=== PATIENT | female | born 1940 | race Caucasian/White ===

== ENCOUNTER 2019-12-23 09:25 | Outpatient (CLI) | payer MEDICARE, SELFPAY ==
--- NOTE | ~2019-12-23 | CT_ITS ---
EXAMINATION: CT abdomen pelvis wo con DATE: 12/23/2019 10:10 INDICATION: Periumbilical mass TECHNIQUE: Computed tomography (CT) of the abdomen and pelvis was performed without intravenous contr ast. Automated exposure control and iterative reconstruction technique were employed. Exam dose: 184 .92 mGy-cm total exam DLP. COMPARISON: 06/26/2016 CT abdomen pelvis FINDINGS: Interval placement of an [id number] stent since 06/26/2016. The [place] abdominal aorta m easures up to 4.2 cm at the diaphragmatic hiatus and up to 5.5 cm in the infrarenal area (compared to 3.7 cm and 4.5 cm, respectively on 06/26/2016. No abnormal periaortic fluid or fibrosis is suggested. No intraperitoneal or retroperitoneal or pelvic mass lesion or adenopathy or ascites. Status post sternotomy. Normal heart size. No pericardial or pleural effusion. Emphysematous changes are noted in the included lower lung zones. No infiltrate or consolidation or m ass lesion is identified in the lower lung zones. Status post cholecystectomy. No hepatic, splenic, pancreatic, and adrenal space-occupying mass lesion . There is a calcified hepatic and multiple calcified splenic granulomas. Stable prominent extrahepat ic bile ducts compared to 06/26/2016, likely secondary to cholecystectomy. No pancreatic duct dilatati on. Approximately 4.5 mm posterior lower pole right renal calcification. There is a pinpoint calculus in the upper pole of the left kidney and a pinpoint calculus in the mid left kidney. No ureteral calculus or hydroureteronephrosis. At least 2 lower pole small renal probable left renal cysts are noted. There is suggestion of a new o r enlarged approximately 1.5 cm low-attenuation lesion in the lower pole of the left kidney since 06/17. Consider further evaluation with renal ultrasound or contrast-enhanced CT examination. The urinary bladder is unremarkable. Status post hysterectomy. Diverticulosis of the sigmoid colon; no evidence of diverticulitis. No bowel obstruction or intraperi toneal free air. Mild apparently old chronic compression fracture deformity of L4. Severe degenerative disc disease at L3-4 and L4-5. Osteopenia. IMPRESSION: Endovascular stent of the abdominal aorta and iliac arteries; [place] abdominal aorta bertin sures up to 4.2 cm at the diaphragmatic hiatus and up to 5.5 cm in the infrarenal area (compared to 3 .7 and 4.5 cm, respectively, on 06/26/2016) Status post sternotomy, cholecystectomy, hysterectomy Bilateral nonobstructing nephrolithiasis Left renal cysts Diverticulosis of the sigmoid colon Reviewed, dictated and finalized at [facility]. Reviewed, dictated and finalized at location [facility]. BAGGER IMPRESSION: Endovascular stent of the abdominal aorta and iliac arteries; jeffrey ve abdominal aorta measures up to 4.2 cm at the diaphragmatic hiatus and up to 5.5 cm in the infrarenal area (compared to 3.7 and 4.5 cm, respectively, on 06/17) Status post sternotomy, cholecystectomy, hysterectomy Bilateral nonobstructing nephrolithiasis Left renal cysts Diverticulosis of the sigmoid colon
[2019-12-23 09:58] LABS: Blood Urea Nitrogen 18 mg/dL (8-26); Estimated Glomerular Filt Rate 25
== END 2019-12-23 09:26 | disposition home or self-care (01) ==
PROVIDERS: Visit Provider Internal Medicine Hematology & Oncology
DX: N20.0 Calculus of kidney (principal); N28.1 Cyst of kidney, acquired; K57.30 Diverticulosis of large intestine without perforation or abscess without bleeding
CPT/HCPCS: 74176

== ENCOUNTER 2019-12-31 15:44 | Emergency (ER) | payer MEDICARE, SELFPAY ==
--- NOTE | ~2019-12-31 | XR_ITS ---
EXAMINATION: XR ribs RT 2V w CXR 2V INDICATION: Right rib pain after fall TECHNIQUE: PA and lateral views of the chest and 3 views of the right ribs were obtained. COMPARISON: 03/25/18 FINDINGS: The bones are osteopenic which limits sensitivity for fracture. However, there appear to be minimally displaced fractures of the right fourth, fifth, and sixth ribs posterolaterally. Thickenin g of the adjacent pleural likely represents surrounding chest wall hematoma. The lungs are free of ac red devil opacities. There is no pleural effusion or pneumothorax. Surgical clips project over the right benny ng apex as well as the right breast. There is a partially imaged abdominal endoluminal stent graft. C holecystectomy clips are noted in the right upper quadrant. Median sternotomy wires and mediastinal s urgical clips are seen, likely from prior coronary artery bypass grafting. The heart size is normal. IMPRESSION: 1. Minimally displaced fractures of the right fourth, fifth, and sixth ribs posterolaterally. Reviewed, dictated and finalized at location A. OR PACKAGING ENGINEER IMPRESSION: 1. Minimally displaced fractures of the right fourth, fifth, and sixth ribs pos terolaterally.
[2019-12-31 16:10] VITALS: BP 150/96; PULSE 92; RESP 16; TEMP 36.7; O2SAT 100
--- NOTE | 2019-12-31 16:26 | ED.FALL ---
HPI - Fall General Chief Complaint: Fall Stated Complaint: R rib pain after fall Time Seen by Provider: 12/31/19 16:26 Source: patient Mode of arrival: ambulatory Limitations: no limitations History of Present Illness HPI Narrative: An 79 y/o female presents to the ED after a fall at 3:30 PM. Pt states that she slipped on a patch of ice and fell on her side. Pt c/o right rib pain. Pt has a prescription for Hydrocodone for chronic back pain and took this after her fall today with no relief. She reports SOB only because pain is worse when she breaths, but denies a HI, LOC, lightheadedness, dizziness, right arm pain, right hip pain, and right leg pain. Pt is on ASA 81 mg. Onset (ago): hour(s) (3:30 PM) Loss of consciousness: none Context: tripped/slipped Related Data Home Medications Medication Instructions Recorded Confirmed anastrozole 1 mg PO DAILY 09/03/19 12/29/19 ascorbic acid (vitamin C) 500 mg PO TID 09/03/19 12/29/19 aspirin 81 mg PO DAILY 09/03/19 12/29/19 calcium carbonate 500 mg PO DAILY 09/03/19 12/29/19 cholecalciferol (vitamin D3) 400 unit PO DAILY 09/03/19 12/29/19 clopidogrel 75 mg PO DAILY 09/03/19 12/29/19 diltiazem HCl 240 mg PO DAILY 09/03/19 12/29/19 fenofibrate 54 mg PO DAILY 09/03/19 12/29/19 ferrous sulfate 325 mg PO TID 09/03/19 12/29/19 hydrocodone-acetaminophen 1 tablet PO Q8H PRN 09/03/19 12/29/19 isosorbide mononitrate 60 mg PO DAILY 09/03/19 12/29/19 levothyroxine 100 mcg PO DAILY 09/03/19 12/29/19 mirtazapine 15 mg PO HS 09/03/19 12/29/19 pantoprazole 40 mg PO BID 09/03/19 12/29/19 pravastatin 40 mg PO DAILY 09/03/19 12/29/19 Allergies Allergy/AdvReac Type Severity Reaction Status Date / Time Penicillins Allergy Intermediate RASH Verified 07/27/18 09:35 Review of Systems Review of Systems: All systems reviewed & are unremarkable except as noted in HPI and below Constitutional: Comments: Reports: a fall; Denies: lightheadedness Respiratory: Respiratory: Reports dyspnea Musculoskeletal: Comments: Reports: right rib pain; Denies: right arm pain, right hip pain, right leg pain Neurologic: Denies dizziness Comments: Denies: HI, LOC PMFSH Past Medical History Medical History Anemia Arthritis Breast cancer, right Full dentures GERD (gastroesophageal reflux disease) Heart attack History of angina History of blood transfusion HLD (hyperlipidemia) HTN (hypertension) Hypothyroid Nose fracture Pneumonia Wears glasses Surgical History Surgical History H/O angioplasty H/O bilateral cataract extraction H/O cardiac catheterization H/O colonoscopy H/O heart artery stent History of appendectomy History of cholecystectomy History of hysterectomy Hx of CABG x3 Social History Social History (Updated 12/31/19 @ 16:40 by Katty Bennett) Smoking status: Former smoker Smoking end date: 11/17/02 Comments PCP: Dr. Pringle Exam Narrative: Exam Narrative: GENERAL: Well-appearing, well-nourished, mild distress due to pain HEAD: Normocephalic, atraumatic EYES: PERRLA and EOMI, conjunctiva clear without discharge EARS: TM's clear bilaterally without erythema or dullness THROAT:Mucous membranes moist, Oropharynx normal without erythema, exudate, peritonsillar swelling or fluctuance NECK: Supple, without lymphadenopathy or mass RESPIRATORY: No respiratory distress, Airway patent, Respirations non-labored, Clear to auscultation without rales, rhonchi or wheeze, right posterior lateral rib tenderness, no bruising or swelling HEART: Regular rate and rhythm. No murmur heard. Normal peripheral pulses. ABDOMEN: Soft, nontender, nondistended, normal active bowel sounds. No masses. No rebound or guarding, No organomegaly. EXTREMITIES: No edema, normal strength with full range of motion. SKIN: Warm, dry, normal color without rash NEURO: Alert and oriented x3. CN 2-12 grossly intact. No foc
[2019-12-31] MEDS: ONDANSETRON HCL ODT 4 MG TABLET PO (18:07)
[2019-12-31] MEDS: HYDROMORPHONE HCL 1 MG/ML INJ 0.5 MG IM (18:07)
[2019-12-31 18:56] VITALS: RESP 16
== END 2019-12-31 18:57 | disposition home or self-care (01) ==
PROVIDERS: Emergency Provider General Practice
DX: S22.41XA Multiple fractures of ribs, right side, initial encounter for closed fracture (principal); D64.9 Anemia, unspecified; M19.90 Unspecified osteoarthritis, unspecified site; Z85.3 Personal history of malignant neoplasm of breast; K21.9 Gastro-esophageal reflux disease without esophagitis; I25.2 Old myocardial infarction; E78.5 Hyperlipidemia, unspecified; I10 Essential (primary) hypertension; E03.9 Hypothyroidism, unspecified; Z98.42 Cataract extraction status, left eye; Z98.41 Cataract extraction status, right eye; Z95.5 Presence of coronary angioplasty implant and graft; Z95.1 Presence of aortocoronary bypass graft; I25.10 Atherosclerotic heart disease of native coronary artery without angina pectoris; Z87.891 Personal history of nicotine dependence; W00.0XXA Fall on same level due to ice and snow, initial encounter
CPT/HCPCS: 71045; 71101; 96372; 99283; A9270; J1170

== ENCOUNTER 2020-04-13 11:52 | Outpatient (CLI) | payer MEDICARE, SELFPAY ==
--- NOTE | ~2020-04-13 | MM_ITS ---
EXAMINATION: MM screen LT diag RT w claus HISTORY: History of right breast cancer TECHNIQUE: Craniocaudal and mediolateral oblique 3-D tomosynthesis images of the right breast and crankshaft grinder niocaudal, mediolateral, and mediolateral oblique 3-D tomosynthesis images of the left breast were pe rformed and synthetic 2-D images were generated. CAD analysis was submitted and interpreted. COMPARISON: 09/24/2019, 03/12/2019, 02/27/2018 BREAST PARENCHYMAL COMPOSITION: There are scattered areas of fibroglandular density. FINDINGS: Lumpectomy changes are present in the upper outer quadrant of the right breast. There is al so unchanged skin thickening of the right breast. Scattered benign-appearing calcifications are prese nt. There is no suspicious mass, calcification, or architectural distortion in either breast to sugge st malignancy. There has been no suspicious interval change. IMPRESSION: 1. Changes of treatment for right breast cancer without evidence of malignancy in either breast. 2. Recommend annual screening mammography while the patient remains in good health. BI-RADS Category 2: Benign finding(s). Reviewed, dictated and finalized at location A. IMPRESSION: 1. Changes of treatment for right breast cancer without evidence of malignancy in either breast. 2. Recommend annual screening mammography while the patient remains in good hea lth. BI-RADS Category 2: Benign finding(s).
== END 2020-04-13 11:53 | disposition home or self-care (01) ==
LOC: ANHIMG 11:57
PROVIDERS: PCP Family Medicine Adolescent Medicine; Visit Provider Internal Medicine Hematology & Oncology
DX: Z12.31 Encounter for screening mammogram for malignant neoplasm of breast (principal); C50.411 Malignant neoplasm of upper-outer quadrant of right female breast
CPT/HCPCS: 77063; 77065; 77067

== ENCOUNTER 2020-05-24 12:58 | Outpatient (CLI) | payer MEDICARE, SELFPAY ==
[2020-05-24 16:39] LABS: Cholesterol 88 mg/dL (0-200); HDL Direct 28 mg/dL; Triglycerides 66 mg/dL (<150)
[2020-05-24 16:50] LABS: LDL Cholesterol Direct 45 mg/dL
== END 2020-05-24 12:59 | disposition home or self-care (01) ==
PROVIDERS: PCP Family Medicine Adolescent Medicine; Visit Provider Internal Medicine Hematology & Oncology
DX: E78.2 Mixed hyperlipidemia (principal)
CPT/HCPCS: 36415; 80061

== ENCOUNTER 2020-09-07 08:00 | Outpatient (RCR) | payer MEDICARE, SELFPAY ==
[2020-07-27] VITALS (9 sets, daily range): BP systolic 126–152; BP diastolic 46–71; PULSE 58–87; RESP 13–18; TEMP 36.4–37.3; O2SAT 98–100
[2020-07-27 08:40] LABS: Hematocrit 16.7 % (37.0-47.0); Hemoglobin 5.1 g/dL (12.0-15.0)
[2020-07-27] MEDS: diphenhydrAMINE HCl CAP 25 MG CAPSULE PO (08:43)
[2020-07-27] MEDS: FUROSEMIDE INJ 40 MG/4 ML VIAL 20 MG IV PUSH (11:23)
[2020-09-07] VITALS (9 sets, daily range): BP systolic 137–161; BP diastolic 52–71; PULSE 68–82; RESP 16; TEMP 36.9–37.4; O2SAT 98–100
[2020-09-07] MEDS: SODIUM CHLORIDE 0.9% IV 250 ML 30 ML IV CONT (10:24)
[2020-09-07] MEDS: diphenhydrAMINE HCl CAP 25 MG CAPSULE PO (10:24)
[2020-09-07] MEDS: FUROSEMIDE INJ 40 MG/4 ML VIAL 20 MG IV PUSH (13:09)
== END 2020-10-25 23:59 | disposition home or self-care (01) ==
LOC: ANHCPCTRAN 08:00
PROVIDERS: PCP Family Medicine Adolescent Medicine; Visit Provider Internal Medicine Hematology & Oncology
DX: N18.4 Chronic kidney disease, stage 4 (severe) (principal); D63.1 Anemia in chronic kidney disease
CPT/HCPCS: 36415; 36430; 85014; 85018; 86850; 86900; 86901; 86920; 86923; 96374; A9270; J1940; J7050; P9016

== ENCOUNTER 2020-11-29 12:58 | Outpatient (CLI) | payer MEDICARE, SELFPAY ==
[2020-11-29 17:13] LABS: Cholesterol 91 mg/dL (0-200); HDL Direct 26 mg/dL; Triglycerides 88 mg/dL (<150)
[2020-11-29 17:24] LABS: LDL Cholesterol Direct 40 mg/dL
== END 2020-11-29 12:59 | disposition home or self-care (01) ==
LOC: ANHLAB 13:01
PROVIDERS: PCP Family Medicine Adolescent Medicine; Visit Provider Internal Medicine Cardiovascular Disease
DX: E78.5 Hyperlipidemia, unspecified (principal)
CPT/HCPCS: 36415; 80061

== ENCOUNTER → 2021-01-13 01:35 | Outpatient (CLI) | payer MEDICARE, SELFPAY ==
[2021-01-13 19:42] LABS: SARS-CoV-2 RNA PCR Negative
== END ==
PROVIDERS: Radiology Diagnostic Radiology; PCP Family Medicine Adolescent Medicine; Visit Provider Internal Medicine Hematology & Oncology
DX: Z01.812 Encounter for preprocedural laboratory examination (principal); Z20.822 Contact with and (suspected) exposure to COVID-19
CPT/HCPCS: C9803; U0003; U0005

== ENCOUNTER 2021-01-16 02:49 | Day surgery (SDC) | payer MEDICARE, SELFPAY ==
[2021-01-15 10:52] VITALS: BMI 18.8
--- NOTE | ~2021-01-16 | BM_ITS ---
EXAMINATION: CCL bone marrow asp w bx diag DATE: 01/16/2021 09:12 INDICATION: Pancytopenia. TECHNIQUE: A time-out was performed to verify the patient's name, date of , and procedure to b e performed. The procedure including the risks, benefits, and alternatives was discussed with the pat ient. Risks discussed included bleeding and infection. The patient understood the risks and agreed to proceed. The skin overlying the right ilium was prepped and draped in usual sterile fashion. Anest hetic was administered with 1% lidocaine subcutaneously. 25 mcg fentanyl IV was given for pain contro l. An 11 gauge needle was inserted into the ilium with fluoroscopic guidance. Bone marrow was aspira tara. An 8 gauge needle was then inserted into the ilium with fluoroscopic guidance. A core bone marro w biopsy was obtained. There were no immediate complications. Fluoroscopy exposure time was 0.0 minut es. The total number of images was 8. FINDINGS: Real-time fluoroscopy demonstrates a marker overlying the right posterior superior iliac sp ine. IMPRESSION: 1. Fluoro-guided bone marrow aspiration. 2. Fluoro-guided bone marrow core biopsy. Reviewed, dictated and finalized at location A. ZING PAD OPERATOR
[2021-01-16 07:47] VITALS: BMI 19.1
[2021-01-16 07:47] LABS: Basophils Percent Auto 0.2 % (0.2-1.2); Eosinophils Percent Auto 0.2 % (0-4.4); Hematocrit 34.7 % (37.0-47.0); Hemoglobin 10.7 g/dL (12.0-15.0); Immature Granulocyte Absolute 0.27 K/mm3 (0.00-0.031); Immature Granulocyte Percent A 1.5 % (0-0.5); Immature Platelet Fraction Pct 20.3 % (0.9-11.2); Lymphocytes Absolute Auto 2.34 K/mm3 (0.9-3.2); Lymphocytes Percent Auto 12.6 % (18.3-44.2); Mean Corpuscular HGB Conc 30.8 g/dl (32-36); Mean Corpuscular Hemoglobin 27.5 pg (26-34); Mean Corpuscular Volume 89.2 fl (80-100); Mean Platelet Volume 12.7 fl (7.4-10.4); Monocytes Absolute Auto 11.2 K/mm3 (0.1-0.6); Neutrophils Absolute Auto 4.8 K/mm3 (1.3-6.7); Neutrophils Percent Auto 25.5 % (45.5-73.1); Platelet Count Result 157 k/mm3 (150-375); Red Blood Count 3.89 M/mm3 (4.2-5.4); Red Cell Distribution Width 18.5 % (11.5-14.5); White Blood Count 18.6 K/mm3 (4.5-10.0)
[2021-01-16 07:48] VITALS: BP 157/63; PULSE 74; RESP 14; TEMP 36.9; O2SAT 97
[2021-01-16 07:56] LABS: INR 1.1
--- NOTE | 2021-01-16 09:15 | SUR.PHASEII ---
RETURNS TO HEAD HOST/HOSTESS 3 S/P BONE MARROW BIOPSY TO R. POSTERIOR MEDIAL HIP. AREA SOFT, NONTENDER. BULKY, MOUNDED GAUZE AND PAPER TAPE DRESSING TO SITE. NO BLEEDING OR HEMATOMA NOTED. LYING ON BACK TO MAINTAIN PRESSURE TO SITE. REVIEWED BEDREST ACTIVITY RESTRICTIONS W/ PT AND SON. VOICED UNDERSTANDING. WILL CONTINUE TO MONITOR.
[2021-01-16 09:20] VITALS: BP 152/63; PULSE 76; RESP 16; TEMP 36.9; O2SAT 98
[2021-01-16 09:35] VITALS: BP 149/59; PULSE 76; RESP 16; O2SAT 98
[2021-01-16 09:50] VITALS: BP 154/56; PULSE 64; RESP 16; O2SAT 95
[2021-01-16 10:05] VITALS: BP 143/63; PULSE 80; RESP 16; O2SAT 99
[2021-01-16 10:20] VITALS: BP 155/64; PULSE 68; RESP 16; O2SAT 99
--- NOTE | 2021-01-16 10:45 | SUR.PHASEII ---
BEDREST COMPLETE AFTER BONE MARROW BIOPSY. NO CHANGE IN R. POSTERIOR MEDIAL HIP DRESSING SITE. REVIEWED WOUND CARE AND MONITORING OF SITE W/ PT AND SON. DRESSING FOR DISCHARGE HOME.
--- NOTE | 2021-01-16 11:00 | SUR.PHASEII ---
REVIEWED ALL DISCHARGE INSTRUCTIONS W/ PT AND SON. QUESTIONS ANSWERED AND VOICED UNDERSTANDING OF ALL. DISCHARGED HOME, OUT VIA WC TO SON'S WAITING CAR, WITH ALL PERSONAL BELONGINGS AND DISCHARGE PAPERWORK. NO DISTRESS NOTED. NO C/O VOICED. DENIES PAIN. STEADY GAIT.
== END 2021-01-16 11:00 | disposition home or self-care (01) ==
PROVIDERS: PCP Family Medicine Adolescent Medicine; Visit Provider Radiology Diagnostic Radiology
DX: D61.818 Other pancytopenia (principal); D64.9 Anemia, unspecified; D69.6 Thrombocytopenia, unspecified
CPT/HCPCS: 36415; 38222; 85025; 85055; 85610; 88184; 88185; 88305; 88311; 88313; 88342; 88360; 88364; 88365; C9803; J2250; J3010; J7040; U0003; U0005

== ENCOUNTER → 2021-01-27 01:54 | Outpatient (CLI) | payer MEDICARE, SELFPAY ==
[2021-01-27 18:54] LABS: SARS-CoV-2 RNA PCR Negative
== END ==
PROVIDERS: PCP Family Medicine Adolescent Medicine; Visit Provider Surgery
DX: Z01.812 Encounter for preprocedural laboratory examination (principal); Z20.822 Contact with and (suspected) exposure to COVID-19
CPT/HCPCS: C9803; U0003; U0005

== ENCOUNTER 2021-01-31 00:26 | Day surgery (SDC) | payer MEDICARE, SELFPAY ==
[2021-01-29 10:42] VITALS: BMI 18.8
--- NOTE | ~2021-01-31 | XR_ITS ---
EXAMINATION: XR chest port-a-cath/central DATE: 01/31/2021 08:46 INDICATION: Port catheter placement TECHNIQUE: frontal view of the chest was obtained. COMPARISON: Chest radiograph dated 12/31/[address] dated 04/02/2016 FINDINGS: Left internal jugular central venous port catheter with distal tip at the cephalad superior vena cava . Mild biapical pleural-parenchymal scarring. Calcified nodules in the left lower lung zone and calci fied left hilar lymph nodes consistent with old granulomatous disease. Regions of increased lucency w ith architectural distortion consistent with mild emphysema but appreciated on prior CT. No pulmonary edema, pleural effusion or pneumothorax. Cardiomediastinal silhouette is within normal limits for AP technique. Median sternotomy wires and mediastinal surgical clips are seen, likely from prior valdes ry artery bypass grafting. Additional surgical clips in the right supraclavicular region. Likely biop sy marking clips at the right breast. A few old right rib fractures. IMPRESSION: 1. Left internal jugular central venous port catheter tip in the cephalad superior vena cava with no acute cardiopulmonary disease. 2. Emphysema. Reviewed, dictated and finalized at location B. IMPRESSION: 1. Left internal jugular central venous port catheter tip in the cephalad super ior vena cava with no acute cardiopulmonary disease. 2. Emphysema.
--- NOTE | ~2021-01-31 | XR_ITS ---
EXAMINATION: XR fl guide central line place EXAM DATE: 01/31/2021 08:35 INDICATION: Insertion of a left-sided portacatheter. TECHNIQUE: Fluoroscopy used during XR fl guide central line place performed by Dr. Jackelyn Elmore MD. The DAP for this procedure was 0.019 mGym2. FINDINGS: 2 images demonstrate a left-sided portacatheter tunneled IJ approach, with tip overlying t he IVC/cavoatrial junction. There are sternotomy wires. Aortic arch calcification. Correlate with pr kassandra note. IMPRESSION: Fluoroscopy used during left giuseppe catheter insertion. Reviewed, dictated and finalized at location A.
[2021-01-31 06:13] VITALS: BP 154/76; PULSE 101; RESP 18; TEMP 36.8; O2SAT 99
[2021-01-31] MEDS: LACTATED RINGERS 1,000 ML 30 ML IV CONT (06:35)
[2021-01-31] MEDS: KETOROLAC 15 MG/ML VIAL (*BKC) IV PUSH (06:41)
--- NOTE | 2021-01-31 06:50 | WPDANESEPPF ---
Anes - Initial Pre Proc Eval Procedure: Operation Date: 01/31/21 07:30 Proposed Procedures p Insertion Roby Cath - Jackelyn Elmore MD Date/Time: 01/31/21 06:50 Surgeon: Jackelyn Elmore MD Pre Op Diagnosis: MDS, Myelodysplastic Syndrome Patient Data Age: 80 Gender: F Height: 1.63 m Weight: 49.9 kg Allergies Allergy/AdvReac Type Severity Reaction Status Date / Time Penicillins Allergy Intermediate RASH Verified 01/29/21 10:16 Home Medications Medication Instructions Recorded Confirmed Type anastrozole 1 mg PO DAILY 09/03/19 01/29/21 History ascorbic acid (vitamin C) 500 mg PO DAILY 09/03/19 01/29/21 History aspirin 81 mg PO DAILY 09/03/19 01/29/21 History calcium carbonate 500 mg PO DAILY 09/03/19 01/29/21 History cholecalciferol (vitamin D3) 400 unit PO DAILY 09/03/19 01/29/21 History fenofibrate 54 mg PO HS 09/03/19 01/29/21 History ferrous sulfate 650 mg PO QAM 09/03/19 01/29/21 History hydrocodone-acetaminophen 1 tablet PO Q8H PRN 09/03/19 01/29/21 History isosorbide mononitrate 60 mg PO DAILY 09/03/19 01/29/21 History levothyroxine 100 mcg PO DAILY 09/03/19 01/29/21 History mirtazapine 15 mg PO HS 09/03/19 01/29/21 History pantoprazole 40 mg PO BID 09/03/19 01/29/21 History pravastatin 40 mg PO DAILY 09/03/19 01/29/21 History losartan 100 mg PO DAILY 01/16/21 01/29/21 History Laboratory Tests 01/31/21 06:29 APTT Pending Patient hx anesthesia problems: none Family hx anesthesia problems: none PMFSH Past Medical History Medical History (Updated 01/31/21 @ 06:51 by Arturo Javed DO) Anemia Arthritis Breast cancer, right CKD (chronic kidney disease) IV Full dentures GERD (gastroesophageal reflux disease) Heart attack History of angina History of blood transfusion HLD (hyperlipidemia) HTN (hypertension) Hypothyroid Nose fracture Pneumonia Wears glasses Surgical History Surgical History (Updated 01/31/21 @ 06:51 by Arturo Javed DO) H/O angioplasty H/O bilateral cataract extraction H/O cardiac catheterization H/O colonoscopy H/O heart artery stent History of appendectomy History of cholecystectomy History of hysterectomy Hx of CABG x3 S/P AAA repair Social History Social History (Updated 12/31/19 @ 16:40 by Katty Bennett) Smoking packs per day: 1 Smoking cigarettes per day: 20.0 Years smoked: 40 Smoking pack-years: 40.00 Smoking status: Former smoker Tobacco type: cigarettes Smoking end date: 11/17/02 Substance use: never Substance use type: does not use Living arrangements: with family Gender identity (if verbalized by the patient): Female Spiritual care concerns: No Anes - Eval Final PreProcedure Day of Procedure 01/31/21 06:50 Patient weight: thin Heart: regular rate and rhythm Lungs: clear to auscultation and normal air movement Airway: Mallampati scale class II Neurological: alert and oriented Last oral intake: >/= 8 hours ASA classification: III Emergent: no Anesthetic plan: proceed Anesthesia type and monitoring: general GIVS and standard monitoring Informed Consent: The patient's anesthetic plan and its attendant risks and benefits were discussed with the patient/family/POA. Questions were solicited and answers provided to the satisfaction of the patient/family/POA.
[2021-01-31 06:52] LABS: Partial Thromboplastin Time 35.3 SECONDS (22.3-36.8)
--- NOTE | 2021-01-31 07:19 | PM.IMHP ---
H&P: HPI History of Present Illness Date/Time: 01/31/21 07:19 Pt is a 80 y/o F c h/o R breast cancer now presenting c newly dx'd leukemia. Pt had recent bone marrow bx that confirmed dx. Pt will now need access for chemotx. Pt denies previous central venous catheterization and reports she is R handed. Chief Complaint: leukemia Review of Systems Review of Systems: All systems reviewed & are unremarkable except as noted in HPI and below PMFSH Past Medical History Medical History Anemia Arthritis Breast cancer, right CKD (chronic kidney disease) IV Full dentures GERD (gastroesophageal reflux disease) Heart attack History of angina History of blood transfusion HLD (hyperlipidemia) HTN (hypertension) Hypothyroid Nose fracture Pneumonia Wears glasses Surgical History Surgical History H/O angioplasty H/O bilateral cataract extraction H/O cardiac catheterization H/O colonoscopy H/O heart artery stent History of appendectomy History of cholecystectomy History of hysterectomy Hx of CABG x3 S/P AAA repair Social History Social History Smoking packs per day: 1 Smoking cigarettes per day: 20.0 Years smoked: 40 Smoking pack-years: 40.00 Smoking status: Former smoker Tobacco type: cigarettes Smoking end date: 11/17/02 Substance use: never Substance use type: does not use Living arrangements: with family Gender identity (if verbalized by the patient): Female Spiritual care concerns: No Meds Home Medications and Allergies Home Medications Medication Instructions Recorded Confirmed Type anastrozole 1 mg PO DAILY 09/03/19 01/31/21 History ascorbic acid (vitamin C) 500 mg PO DAILY 09/03/19 01/31/21 History aspirin 81 mg PO DAILY 09/03/19 01/31/21 History calcium carbonate 500 mg PO DAILY 09/03/19 01/31/21 History cholecalciferol (vitamin D3) 400 unit PO DAILY 09/03/19 01/31/21 History fenofibrate 54 mg PO HS 09/03/19 01/31/21 History ferrous sulfate 650 mg PO QAM 09/03/19 01/31/21 History hydrocodone-acetaminophen 1 tablet PO Q8H PRN 09/03/19 01/31/21 History isosorbide mononitrate 60 mg PO DAILY 09/03/19 01/31/21 History levothyroxine 100 mcg PO DAILY 09/03/19 01/31/21 History mirtazapine 15 mg PO HS 09/03/19 01/31/21 History pantoprazole 40 mg PO BID 09/03/19 01/31/21 History pravastatin 40 mg PO DAILY 09/03/19 01/31/21 History losartan 100 mg PO DAILY 01/16/21 01/31/21 History Allergies Allergy/AdvReac Type Severity Reaction Status Date / Time Penicillins Allergy Intermediate RASH Verified 01/31/21 07:02 Vital Signs Vital Signs - 24 hr 01/31/21 06:13 Temperature 36.8 C Pulse Rate 101 H Respiratory Rate 18 Blood Pressure 154/76 H Pulse Oximetry 99 Exam Const: General: cooperative, comfortable, no acute distress and tired appearing Nutritional Appearance: average body habitus Orientation/consciousness: patient oriented x3 Limitations: no limitations HENMT: Head: normal to inspection, normocephalic and atraumatic Mouth: Yes Normal oral and palatal mucosa present and Yes moist mucous membranes Eyes: General: appearance normal, both eyes and all related structures Pupils: Equal, round and reactive pupils present Neck: Neck: normal visual inspection, full ROM and no lymphadenopathy Chest: Chest palpation & inspection: normal inspection of the chest Resp: Effort & Inspection: normal respiratory effort Auscultation: clear to auscultation bilaterally Cardio: Rate: regular rate Rhythm: regular rhythm GI: Inspection: normal to inspection and non-distended GI Palp: Yes Soft to palpation and No Tenderness to palpation present (GI) Assessment and Plan Assessment and plan (1) MDS/MPN (myelodysplastic/myeloproliferative neoplasms): Code(s): D46.9 - Myelodysplastic syndrome, unspecified Status: Ac
--- NOTE | 2021-01-31 07:23 | WPDHPUPDATE1 ---
History and Physical Update Update Date/Time: 01/31/21 07:23 History and Physical has been reviewed, including an updated exam of the patient. There are NO changes in the patient's condition. Risks, benefits, and alternatives have been discussed and questions answered. Patient agrees to proceed with procedure.
[2021-01-31] MEDS: ceFAZolin 2 GM/D5W 50 ML 2 GM/50 ML BAG IVPB (07:40)
[2021-01-31] MEDS: BUPIVACAINE/EPINEPHRINE 0.5% 30 ML VIAL INFILTRATE (07:54)
[2021-01-31] MEDS: HEPARIN SODIUM, PORCINE 10,000 UNITS/10 ML VIAL 10000 UNITS IV PUSH (07:56)
[2021-01-31] MEDS: HEPARIN SODIUM 5,000 UNITS/ML VIAL 5000 UNITS IRRIGATION (07:57)
[2021-01-31 08:33] VITALS: BP 175/73; PULSE 89; RESP 16; O2SAT 97
--- NOTE | 2021-01-31 08:36 | PM.PROC ---
Procedure Note - Detailed Date of procedure: 01/31/21 Pre-op diagnosis: MDS, Myelodysplastic Syndrome Post-op diagnosis: same Procedure performed: placement of left internal jugular venous access device under ultrasound and fluroscopic guidance Description of procedure: Patient was brought into the operating room and placed in the supine position. After adequate induction of mac anesthesia, the patient was prepped and draped in normal sterile fashion. Time-out was then done to verify the patient's identity, as well as the procedure being performed. I began by making a small incision in the left chest, I then gained access into the left subclavian vein with an 18 gauge needle. I then attempted to place the guidewire into the vein, however, I could not get the wire to pass over 15 cm. I did attempt to cannulize the subclavian vein a few other times without success. I then used the ultrasound to gain access into the left internal jugular vein. Once access was gained, I placed the guidewire in the vein and confirmed proper positioning. I then locally anesthetized the area in the left chest. I then enlarged the incision including making a subcutaneous pocket inferiorly to allow placement of the port itself. I proceeded to tunnel the catheter from the chest to the left neck insertion site. I then placed a dilating sheath over the guidewire into the left internal jugular vein via sterile Seldinger technique. This was once again done and confirmed via fluoroscopic guidance. I then removed the dilator and the guidewire, now just leaving the sheath in the vein. I then fed the previously flushed catheter into the left internal jugular vein under fluoroscopic guidance. At approximately 20 cm, the catheter was noted to be near the atrial caval junction. I then peeled away the sheath, now just leaving the catheter in the vein. I then was able to easily draw and flush from the catheter. The catheter was cut to fit and attached to the port itself. The port was placed into the previously made subcutaneous pocket and sutured in with 0 Ethibond suture. Final fluoroscopic view showed the termination of the catheter at the atrial caval junction with a nice smooth curvature back to the port itself. I was able to gain access to the port with a Paul needle and was able to easily draw and flush from the port. I then flushed 4 cc of a final heparin flush into the port. The incision was closed with 3 0 Vicryl suture in the subcutaneous tissue and the skin was closed with 4 O Monocryl subcuticular suture. Dermabond was then placed on wound. The patient tolerated the procedure well and will be sent to the recovery room in stable condition. Implants: LIJ VAD Anesthesia: MAC and local Surgeon: Jackelyn Elmore MD Estimated blood loss (mL): 50 Drains: No Packing: No Pathology: none sent Complications: No immediate complications Condition: stable Disposition: PACU Findings: placement of LIJ VAD
--- NOTE | 2021-01-31 08:52 | SUR.PHASEII ---
0840 PORTABLE CHEST XRAY TAKEN.
[2021-01-31 09:00] VITALS: BP 185/77; PULSE 87; RESP 16; O2SAT 96
[2021-01-31 09:30] VITALS: BP 162/84; PULSE 88; RESP 16; O2SAT 96
== END 2021-01-31 09:57 | disposition home or self-care (01) ==
PROVIDERS: PCP Family Medicine Adolescent Medicine; Visit Provider Surgery
PROC: (CPT 36561; principal; 2021-01-31 07:30)
DX: D46.9 Myelodysplastic syndrome, unspecified (principal); I12.9 Hypertensive chronic kidney disease with stage 1 through stage 4 chronic kidney disease, or unspecified chronic kidney disease; N18.4 Chronic kidney disease, stage 4 (severe); K21.9 Gastro-esophageal reflux disease without esophagitis; I25.2 Old myocardial infarction; E03.9 Hypothyroidism, unspecified; Z85.3 Personal history of malignant neoplasm of breast; Z95.1 Presence of aortocoronary bypass graft; Z95.5 Presence of coronary angioplasty implant and graft; Z87.891 Personal history of nicotine dependence; Z79.82 Long term (current) use of aspirin
CPT/HCPCS: 36561; 36415; 77001; 85730; C1788; C9803; J0690; J1644; J1885; J2405; J2704; J3010; J7030; J7120; U0003; U0005

== ENCOUNTER 2021-02-06 06:56 | Outpatient (RCR) | payer MEDICARE, SELFPAY ==
[2020-11-09] VITALS (9 sets, daily range): BP systolic 129–170; BP diastolic 58–97; PULSE 64–75; RESP 16–18; TEMP 36.2–37.2; O2SAT 96–100
[2020-11-09 07:34] LABS: Hemoglobin 6.2 g/dL (12.0-15.0)
[2020-11-09] MEDS: diphenhydrAMINE HCl CAP 25 MG CAPSULE PO (07:57)
[2020-11-09] MEDS: ACETAMINOPHEN 325 MG TABLET 650 MG PO (07:58)
[2020-11-09] MEDS: SODIUM CHLORIDE 0.9% IV 250 ML 30 ML IV CONT (08:40)
[2020-11-09] MEDS: FUROSEMIDE INJ 40 MG/4 ML VIAL 20 MG IV PUSH (11:38)
[2021-01-11] VITALS (9 sets, daily range): BP systolic 138–162; BP diastolic 58–81; PULSE 14–72; RESP 13–15; TEMP 36.1–36.9; O2SAT 97–100
[2021-01-11] MEDS: diphenhydrAMINE HCl CAP 25 MG CAPSULE PO (09:00)
[2021-01-11] MEDS: ACETAMINOPHEN 325 MG TABLET 650 MG PO (09:00)
[2021-01-11] MEDS: FUROSEMIDE INJ 40 MG/4 ML VIAL 20 MG IV PUSH (11:56)
[2021-02-06] VITALS (13 sets, daily range): BP systolic 143–177; BP diastolic 59–85; PULSE 70–82; RESP 14–18; TEMP 36.4–37.2; O2SAT 97–100
[2021-02-06] MEDS: ACETAMINOPHEN 325 MG TABLET 650 MG PO (08:36)
[2021-02-06] MEDS: diphenhydrAMINE HCl CAP 25 MG CAPSULE PO (08:36)
[2021-02-06] MEDS: SODIUM CHLORIDE 0.9% IV 250 ML 30 ML IV CONT (08:37)
--- NOTE | 2021-02-06 10:01 | PC.NURSE ---
Izzy Counts placed peripheral IV - 22 gauge in left forearm -using ultrasound this AM after 3 attempts by 2 different RN's. After increasing rate the vein became infiltrated. Blood stopped and Izzy returned to access the port. The port site is bruised and tender, but has great blood return and flushes easily. Pt denied discomfort when accessing the port. First unit of PRBC was on hold for 20 minutes while new IV accessed was obtained.
[2021-02-06] MEDS: FUROSEMIDE INJ 40 MG/4 ML VIAL 20 MG IV PUSH (12:00)
[2021-02-06] MEDS: HEPARIN SOD FLUSH 500 UNITS/5 ML SYRINGE (15:14)
== END 2021-02-07 23:59 | disposition home or self-care (01) ==
LOC: ANHCPCTRAN 06:56
PROVIDERS: PCP Family Medicine Adolescent Medicine; Visit Provider Internal Medicine Hematology & Oncology
DX: N18.4 Chronic kidney disease, stage 4 (severe) (principal); D63.1 Anemia in chronic kidney disease
CPT/HCPCS: 36415; 36430; 85014; 85018; 86850; 86900; 86901; 86923; 96374; A9270; J1940; J7050; P9016

== ENCOUNTER 2021-03-23 07:26 | Outpatient (RCR) | payer MEDICARE, SELFPAY ==
[2021-03-05] VITALS (10 sets, daily range): BP systolic 104–154; BP diastolic 50–70; PULSE 62–74; RESP 16; TEMP 36.6–37; O2SAT 97–100
[2021-03-05] MEDS: diphenhydrAMINE HCl CAP 25 MG CAPSULE PO (08:40)
[2021-03-05] MEDS: ACETAMINOPHEN 325 MG TABLET 650 MG PO (08:40)
[2021-03-05] MEDS: SODIUM CHLORIDE 0.9% IV 250 ML 30 ML IV CONT (09:00)
[2021-03-05] MEDS: FUROSEMIDE INJ 40 MG/4 ML VIAL 20 MG IV PUSH (12:20)
[2021-03-05 12:33] LABS: Hematocrit 18.7 % (37.0-47.0); Hemoglobin 5.9 g/dL (12.0-15.0)
--- NOTE | 2021-03-05 12:38 | PC.NURSE ---
Critical lab result received from Laboratory. Hemoglobin = 5.9 and Hematocrit = 18.7. This was drawn approximately 30 minutes after receiving 1 unit of PRBC. Pt outpatient for 2 units PRBC. Hemoglobin = 5.5 on 03/02.
[2021-03-05] MEDS: HEPARIN SOD FLUSH 500 UNITS/5 ML SYRINGE (16:05)
[2021-03-23] VITALS (10 sets, daily range): BP systolic 107–163; BP diastolic 51–64; PULSE 69–81; RESP 17–18; TEMP 36.8–37.1; O2SAT 96–100
[2021-03-23] MEDS: ACETAMINOPHEN 325 MG TABLET 650 MG PO (08:56)
[2021-03-23] MEDS: diphenhydrAMINE HCl CAP 25 MG CAPSULE PO (08:57)
[2021-03-23 09:08] LABS: Basophils Percent Auto 4.2 % (0.2-1.2); Eosinophils Percent Auto 4.2 % (0-4.4); Immature Platelet Fraction Pct 8.1 % (0.9-11.2); Lymphocytes Absolute Auto 0.17 K/mm3 (0.9-3.2); Lymphocytes Percent Auto 70.8 % (18.3-44.2); Mean Corpuscular HGB Conc 30.7 g/dl (32-36); Mean Corpuscular Hemoglobin 29.4 pg (26-34); Mean Corpuscular Volume 95.6 fl (80-100); Mean Platelet Volume 10.9 fl (7.4-10.4); Monocytes Percent Auto 4.2 % (2.6-8.5); Neutrophils Percent Auto 16.6 % (45.5-73.1); Platelet Count Result 64 k/mm3 (150-375); Red Cell Distribution Width 20.4 % (11.5-14.5)
[2021-03-23 09:16] LABS: Anion Gap 2 mmol/L (8-16); Blood Urea Nitrogen 23 mg/dL (7-17); Calcium 7.8 mg/dL (8.4-10.2); Carbon Dioxide 27 mmol/L (22-30); Chloride 107 mmol/L (98-107); Estimated Glomerular Filt Rate 24; Glucose 95 mg/dL (65-105); Potassium 3.7 mmol/L (3.4-5.0); Sodium 136 mmol/L (137-145)
[2021-03-23 09:20] LABS: Hematocrit 15.3 % (37.0-47.0); Hemoglobin 4.7 g/dL (12.0-15.0); White Blood Count 0.2 K/mm3 (4.5-10.0)
[2021-03-23] MEDS: SODIUM CHLORIDE 0.9% IV 250 ML 30 ML IV CONT (09:25)
[2021-03-23 09:26] LABS: Hypochromasia 1+ (NORMAL); Platelet Estimate Decreased (Adequate)
[2021-03-23 09:27] LABS: Ovalocytes 1+ (NORMAL); Target Cells 1+ (NORMAL)
[2021-03-23] MEDS: FUROSEMIDE INJ 40 MG/4 ML VIAL 20 MG IV PUSH (12:30)
[2021-03-23] MEDS: HEPARIN SOD FLUSH 500 UNITS/5 ML SYRINGE (15:25)
== END 2021-04-02 23:59 | disposition home or self-care (01) ==
LOC: ANHCPCTRAN 07:26
PROVIDERS: PCP Family Medicine Adolescent Medicine; Visit Provider Internal Medicine Hematology & Oncology
DX: D46.9 Myelodysplastic syndrome, unspecified (principal); D63.1 Anemia in chronic kidney disease; N18.4 Chronic kidney disease, stage 4 (severe)
CPT/HCPCS: 36415; 36430; 80048; 85014; 85018; 85025; 85055; 86850; 86900; 86901; 86923; 96374; A9270; J1940; J7050; P9016

== ENCOUNTER 2021-03-30 15:35 | Inpatient (IN) | payer MEDICARE, SELFPAY ==
[2021-03-30] VITALS (15 sets, daily range): BP systolic 109–134; BP diastolic 45–69; PULSE 91–109; RESP 16–32; TEMP 36.4–38.8; O2SAT 94–100; BMI 19.0
--- NOTE | ~2021-03-30 | XR_ITS ---
XR chest 1V portable DATE: 03/31/2021 08:55 INDICATION: Increased shortness of breath. Right lower chest pain. TECHNIQUE: Portable AP views on 03/31/2021 at 0 [id number] hours COMPARISON: 03/30/2021 portable AP chest FINDINGS: Surgical clips are again noted overlying the right supraclavicular area. Status post sterno leander. Left internal jugular Port-A-Cath catheter tip overlies proximal superior vena cava. There is interval pulmonary vascular congestion and subpleural and pulmonary interstitial edema and b ilateral predominantly mid and lower lung zone infiltrates suggesting pulmonary edema since 03/30/2021 . Superimposed pneumonia or aspiration are not excluded. Bilateral apical capping is noted. Heart size appears within upper normal limits considering magnification associated with AP projection . Aortic calcification. Diffuse osteopenia. IMPRESSION: Interval pulmonary vascular congestion and pulmonary edema since 03/30/2021. Pneumonia or aspiration are not excluded. Reviewed, dictated and finalized at location A. IMPRESSION: Interval pulmonary vascular congestion and pulmonary edema since . Pneumonia or aspiration are not excluded.
--- NOTE | ~2021-03-30 | XR_ITS ---
EXAMINATION: XR chest 1V portable EXAM DATE: 03/30/2021 17:53 INDICATION: Weakness 2-3 days, sores on bottom/mouth. History cancer. TECHNIQUE: Portable AP frontal chest x-ray was obtained. Comparison is made to prior examination from 01/31/2021. FINDINGS: There is a left-sided Chemo-Port. Sternotomy wires are present without findings to suggest sternal dehiscence. Cardiomediastinal silhouette is normal. Abdominal aortic endograft. There are cho lecystectomy clips. No confluent consolidation, pneumothorax or pleural effusion suspected. There is aortic arteriosclerosis. There are bony degenerative changes. IMPRESSION: No acute cardiac pulmonary findings. Reviewed, dictated and finalized at location A.
[2021-03-30 15:52] LABS: Mean Corpuscular HGB Conc 33.2 g/dl (32-36); Mean Corpuscular Hemoglobin 30.2 pg (26-34); Mean Platelet Volume 11.3 fl (7.4-10.4); Platelet Count Result 282 k/mm3 (150-375); Red Blood Count 2.22 M/mm3 (4.2-5.4); Red Cell Distribution Width 20.7 % (11.5-14.5)
[2021-03-30 16:01] LABS: Anion Gap 7 mmol/L (8-16); Blood Urea Nitrogen 35 mg/dL (7-17); Calcium 8.8 mg/dL (8.4-10.2); Carbon Dioxide 22 mmol/L (22-30); Chloride 102 mmol/L (98-107); Estimated CRCL calculation 15 ml/min; Estimated Glomerular Filt Rate 23; Glucose 111 mg/dL (65-105); Potassium 3.6 mmol/L (3.4-5.0); Sodium 131 mmol/L (137-145)
[2021-03-30 16:15] LABS: White Blood Count 0.3 K/mm3 (4.5-10.0)
[2021-03-30 16:16] LABS: Hemoglobin 6.7 g/dL (12.0-15.0)
[2021-03-30 16:17] LABS: Hematocrit 20.2 % (37.0-47.0)
[2021-03-30 16:21] LABS: Anisocytosis 3+ (NORMAL); Lymphocytes Absolute Manual 0.17 K/mm3 (1.1-4.5); Monocytes Percent Manual 2 % (3-9); Neutrophils Percent Manual 39 % (46-73); Platelet Estimate Adequate (Adequate); Total Cells Counted 100
[2021-03-30 16:22] LABS: Hypochromasia 1+ (NORMAL)
--- NOTE | 2021-03-30 17:37 | ECG_ITS ---
Measurements Intervals [place] Rate: 104 P: 55 KS: 189 QRS: -70 QRSD: 152 T: 0 QT: 328 QTc: 432 Interpretive Statements SINUS TACHYCARDIA ATRIAL PREMATURE COMPLEXES RIGHT BUNDLE BRANCH BLOCK LEFT ANTERIOR FASCICULAR BLOCK LEFT VENTRICULAR HYPERTROPHY AND ST-T CHANGE NONSPECIFIC ST ELEVATION IN ANTEROLAT/INF LEADS BASELINE ARTIFACT- I, III, AVR, AVL ABNORMAL ECG Electronically Signed On 03-30-2021 19:23:00 CDT by Chris Reese D.O.
--- NOTE | 2021-03-30 18:05 | ED.WEAKNESS ---
HPI - Weakness General Chief complaint: Weakness Stated complaint: weak Time Seen by Provider: 03/30/21 17:06 Source: patient, RN notes reviewed and old records reviewed Mode of arrival: ambulatory Limitations: no limitations History of Present Illness HPI Narrative: This is an 81 year old female with history of MDS, anemia, on chemotherapy who presents for evaluation of fatigue and weakness for 2- 3 days. She feels as though her hemoglobin is low. She states she received a blood transfusion last week. She continues to feel fatigue. She denies abdominal pain, fever, or sob. She does note nausea and vomiting early today . She also reports intermittent midsternal chest pain when she breaths. MD Complaint: generalized weakness Related Data Home Medications Medication Instructions Recorded Confirmed anastrozole 1 mg PO DAILY 09/03/19 03/30/21 ascorbic acid (vitamin C) 500 mg PO DAILY 09/03/19 03/30/21 aspirin 81 mg PO DAILY 09/03/19 03/30/21 calcium carbonate 500 mg PO DAILY 09/03/19 03/30/21 cholecalciferol (vitamin D3) 400 unit PO DAILY 09/03/19 03/30/21 fenofibrate 54 mg PO HS 09/03/19 03/30/21 ferrous sulfate 650 mg PO QAM 09/03/19 03/30/21 hydrocodone-acetaminophen 1 tablet PO Q6H PRN 09/03/19 03/30/21 isosorbide mononitrate 60 mg PO DAILY 09/03/19 03/30/21 levothyroxine 100 mcg PO DAILY 09/03/19 03/30/21 mirtazapine 15 mg PO HS 09/03/19 03/30/21 pantoprazole 40 mg PO BID 09/03/19 03/30/21 pravastatin 40 mg PO DAILY 09/03/19 03/30/21 losartan 100 mg PO DAILY 01/16/21 03/30/21 Levaquin 03/21/21 acyclovir 400 mg PO BID 03/21/21 03/30/21 fluconazole 100 mg PO DAILY 03/21/21 03/30/21 diltiazem HCl [DILT-XR] 240 mg PO DAILY 03/30/21 03/30/21 lidocaine-prilocaine 1 applic TOPICAL DIRECTED PRN 03/30/21 03/30/21 prochlorperazine maleate 10 mg PO Q6H PRN 03/30/21 03/30/21 Allergies Allergy/AdvReac Type Severity Reaction Status Date / Time Penicillins Allergy Intermediate RASH Verified 03/26/21 11:09 Review of Systems Review of Systems: All systems reviewed & are unremarkable except as noted in HPI and below Constitutional: Constitutional: Denies chills, Reports fatigue, Denies fever(s) and Reports weakness Cardiovascular: Cardiovascular: Reports chest pain, Denies rapid heart rate and Denies radiating jaw, neck or arm pain Respiratory: Respiratory: Denies cough and Denies dyspnea Gastrointestinal: Gastrointestinal: Denies abdominal pain, Reports nausea and Reports vomiting Genitourinary: Genitourinary: Denies abnormal vaginal bleeding PMFSH Past Medical History Medical History Anemia Arthritis Breast cancer, right CKD (chronic kidney disease) IV Full dentures GERD (gastroesophageal reflux disease) Heart attack History of angina History of blood transfusion HLD (hyperlipidemia) HTN (hypertension) Hypothyroid Nose fracture Pneumonia Wears glasses Surgical History Surgical History H/O angioplasty H/O bilateral cataract extraction H/O cardiac catheterization H/O colonoscopy H/O heart artery stent History of appendectomy History of cholecystectomy History of hysterectomy Hx of CABG x3 S/P AAA repair Family History Family History (Updated 03/30/21 @ 23:46 by Racquel Kwok RN) Mother Acute myocardial infarction Sibling Acute myocardial infarction Other Hypertension Social History Social History Smoking packs per day: 2 Smoking cigarettes per day: 40.0 Years smoked: 40 Smoking pack-years: 80.00 Smoking status: Former smoker Tobacco type: cigarettes Second hand tobacco smoke exposure: Yes Smoking end date: 03/17/03 Alcohol intake: never Substance use: never Substance use type: does not use Gender identity (if verbalized by the patient): Female Spiritual care concerns: No Exam
[2021-03-30 18:10] LABS: INR 1.5; Prothrombin Time 18.5 Seconds (11.1-14.7)
[2021-03-30 18:11] LABS: Partial Thromboplastin Time 39.8 SECONDS (22.3-36.8)
[2021-03-30] MEDS: ONDANSETRON INJ 4 MG/2 ML VIAL IV PUSH (18:17)
[2021-03-30] MEDS: SODIUM CHLORIDE 0.9% IV 250 ML 30 ML IV CONT (18:19)
--- NOTE | 2021-03-30 19:19 | PC.NURSE ---
Report to JOSEPH Murrell, to continue care.
[2021-03-30] MEDS: PANTOPRAZOLE SODIUM IV 40 MG VIAL IV PUSH (19:23)
[2021-03-30] MEDS: TUBING, BLOOD PLUM PUMP TUBING 1 EACH XX (20:05)
--- NOTE | 2021-03-30 23:28 | ECG_ITS ---
Measurements Intervals [place] Rate: 89 P: 68 CO: 178 QRS: -66 QRSD: 164 T: -25 QT: 431 QTc: 524 Interpretive Statements SINUS RHYTHM ATRIAL PREMATURE COMPLEX RIGHT BUNDLE BRANCH BLOCK LEFT ANTERIOR FASCICULAR BLOCK ABNORMAL ECG Electronically Signed On 04-03-2021 8:47:16 CDT by Chris Reese D.O.
[2021-03-31] VITALS (21 sets, daily range): BP systolic 76–119; BP diastolic 40–75; PULSE 88–116; RESP 18–50; TEMP 36.1–37.1; O2SAT 84–100
[2021-03-31] MEDS: CENTRAL LINE FLUSH 10 ML IV PUSH ×3 (00:31→13:22)
--- NOTE | 2021-03-31 00:35 | ADMIMU ---
This patient, Katrin Mckeon, was admitted to IMU status, and placed in IMU Room 202-01 ON 03/30/21 AT 2320. Patient/family oriented to hospital policies and general routines including ID bracelet, bed and alarms, visiting hours, pain management, procedures, bathroom and other care routines, personal items, smoking policy, room service/diet, and visiting hours. Valuables list has been completed. Information on how to activate the Rapid Response Team has been discussed. Patient/Family are encouraged to report perceived risks to care and to ask questions if they do not understand what they are told or what they should do.
--- NOTE | 2021-03-31 00:35 | PM.IMHP ---
H&P: HPI History of Present Illness Date/Time: 03/31/21 00:35 Chief Complaint: Fatigue Narrative: This is an 81-year-old female with past medical history significant for MDS patient is undergoing chemotherapy she presented to the emergency room due to progressively worsening fatigue poor appetite. She had received a blood transfusion on a week ago but add she continues to feel tired and fatigued. She denies any chills, rigors ,fevers, no nausea no vomiting no diarrhea she has some diffuse abdominal pain ,no pain or burning with urination ,no shortness of breath ,no cough ,no sputum production no palpitations no syncope or near syncope. Patient received 1 unit of packed red blood cells in the emergency room and she has generalized pain. She had a hemoglobin of 6.7 on presentation to the emergency room also creatinine of 2.1. Review of Systems Review of Systems: All systems reviewed & are unremarkable except as noted in HPI and below Constitutional: Constitutional: Denies chills, Reports fatigue, Denies fever(s) and Reports weakness Cardiovascular: Cardiovascular: Reports chest pain, Denies rapid heart rate, Denies radiating jaw, neck or arm pain and Denies dyspnea Respiratory: Respiratory: Denies cough and Denies dyspnea Gastrointestinal: Gastrointestinal: Denies abdominal pain, Reports nausea and Reports vomiting Genitourinary: Genitourinary: Denies abnormal vaginal bleeding Neurologic: Reports weakness Endocrine: Endocrine: Reports fatigue PMFSH Past Medical History Medical History (Updated 03/31/21 @ 00:50 by Mil Underwood MD) Anemia Arthritis Breast cancer, right CKD (chronic kidney disease) IV Full dentures GERD (gastroesophageal reflux disease) Heart attack History of angina History of blood transfusion HLD (hyperlipidemia) HTN (hypertension) Hypothyroid Nose fracture Pneumonia Wears glasses Surgical History Surgical History H/O angioplasty H/O bilateral cataract extraction H/O cardiac catheterization H/O colonoscopy H/O heart artery stent History of appendectomy History of cholecystectomy History of hysterectomy Hx of CABG x3 S/P AAA repair Family History Family History (Updated 03/30/21 @ 23:46 by Racquel Kwok RN) Mother Acute myocardial infarction Sibling Acute myocardial infarction Other Hypertension Social History Social History Smoking packs per day: 2 Smoking cigarettes per day: 40.0 Years smoked: 40 Smoking pack-years: 80.00 Smoking status: Former smoker Tobacco type: cigarettes Second hand tobacco smoke exposure: Yes Smoking end date: 03/17/03 Alcohol intake: never Substance use: never Substance use type: does not use Gender identity (if verbalized by the patient): Female Spiritual care concerns: No Meds Home Medications and Allergies Home Medications Medication Instructions Recorded Confirmed Type anastrozole 1 mg PO DAILY 09/03/19 03/30/21 History ascorbic acid (vitamin C) 500 mg PO DAILY 09/03/19 03/30/21 History aspirin 81 mg PO DAILY 09/03/19 03/30/21 History calcium carbonate 500 mg PO DAILY 09/03/19 03/30/21 History fenofibrate 54 mg PO HS 09/03/19 03/30/21 History ferrous sulfate 650 mg PO QAM 09/03/19 03/30/21 History hydrocodone-acetaminophen 1 tablet PO Q6H PRN 09/03/19 03/30/21 History isosorbide mononitrate 60 mg PO HS 09/03/19 03/31/21 History levothyroxine 100 mcg PO DAILY 09/03/19 03/30/21 History mirtazapine 15 mg PO HS 09/03/19 03/30/21 History pantoprazole 40 mg PO BID 09/03/19 03/30/21 History pravastatin 40 mg PO DAILY 09/03/19 03/30/21 History losartan 100 mg PO DAILY 01/16/21 03/30/21 History Levaquin 500 mg BYMOUTH DAILY 03/21/21 03/31/21 History acyclovir 400 mg PO BID 03/21/21 03/30/21 History fluconazole 100 mg PO DAILY 03/21/21 03/30/21 History diltiazem HCl [DILT-XR] 240 mg PO DAILY
--- NOTE | 2021-03-31 00:51 | PC.NURSE ---
BOTTLE OF HYDROCODONE/ACETAMINOPHEN 5-325 VERIFIED WITH COUNT OF 164 PER TABBY CUENCA PHARMACIST.
[2021-03-31] MEDS: MORPHINE SULFATE (*CRX) 2 MG/ML INJ IV PUSH ×2 (04:02→22:32)
[2021-03-31] MEDS: SODIUM CHLORIDE 0.9% IV 1,000 ML 75 ML IV CONT (05:37)
[2021-03-31 05:59] LABS: Hemoglobin 7.7 g/dL (12.0-15.0); Immature Granulocyte Absolute 0.04 K/mm3 (0.00-0.031); Mean Corpuscular HGB Conc 33.5 g/dl (32-36); Mean Corpuscular Volume 89.5 fl (80-100); Mean Platelet Volume 11.8 fl (7.4-10.4); Neutrophils Absolute Auto 0.1 K/mm3 (1.3-6.7); Platelet Count Result 224 k/mm3 (150-375); Red Blood Count 2.57 M/mm3 (4.2-5.4); Red Cell Distribution Width 18.9 % (11.5-14.5)
[2021-03-31 06:14] LABS: Alanine Aminotransferase 28 U/L (4-35); Albumin Level 2.5 g/dL (3.5-5.1); Alkaline Phosphatase 40 U/L (38-126); Anion Gap 5 mmol/L (8-16); Aspartate Amino Transferase 107 U/L (14-36); Bilirubin,Total 1.5 mg/dL (0.2-1.3); Blood Urea Nitrogen 36 mg/dL (7-17); Calcium 8.4 mg/dL (8.4-10.2); Carbon Dioxide 23 mmol/L (22-30); Chloride 105 mmol/L (98-107); Estimated CRCL calculation 14 ml/min; Estimated Glomerular Filt Rate 23; Glucose 82 mg/dL (65-105); Potassium 3.7 mmol/L (3.4-5.0); Sodium 133 mmol/L (137-145)
[2021-03-31 06:33] LABS: White Blood Count 0.3 K/mm3 (4.5-10.0)
[2021-03-31 06:34] LABS: Anisocytosis 2+ (NORMAL); Hypochromasia 1+ (NORMAL); Platelet Estimate Adequate (Adequate)
--- NOTE | 2021-03-31 08:45 | PC.NURSE ---
This nurse advised that when patient child care leader obtained katie signs, patient oxygen was 84% on room air. This nurse assessed patient, and patient appeared to be tachypneic, nasal canula applied - 5L nasal cannula, and patient oxygen saturation was 90-92%. Dr. Yang notified, stat portable chest xray obtained. Will continue to monitor closely.
--- NOTE | 2021-03-31 08:47 | PM.IMPN ---
Progress Note: A&P Assessment and Plan (1) Neutropenic fever: Code(s): D70.9 - Neutropenia, unspecified; R50.81 - Fever presenting with conditions classified elsewhere Status: Acute Assessment and Plan: Culture CXR Vanc/cefepime 03/31 (2) MDS/MPN (myelodysplastic/myeloproliferative neoplasms): Code(s): D46.9 - Myelodysplastic syndrome, unspecified Status: Acute Assessment and Plan: Maintain hgb at 7 or greater (3) Anemia of chronic renal failure, stage 4 (severe): Code(s): N18.4 - Chronic kidney disease, stage 4 (severe); D63.1 - Anemia in chronic kidney disease Status: Acute (4) Heme positive stool: Code(s): R19.5 - Other fecal abnormalities Status: Acute Assessment and Plan: Monitor h/h (5) Elevated troponin I level: Code(s): R77.8 - Other specified abnormalities of plasma proteins Status: Acute Assessment and Plan: Flat trend Renal failure Possible myocarditis (6) Pleuritic chest pain: Code(s): R07.81 - Pleurodynia Status: Acute Assessment and Plan: Myopericarditis vs PE vs pleuritis vs pneumonia (7) Acute respiratory failure with hypoxemia: Code(s): J96.01 - Acute respiratory failure with hypoxia Status: Acute Assessment and Plan: CHF vs PE vs pneumonia vs aspiration (8) Chronic progressive renal failure, stage 4 (severe): Code(s): N18.4 - Chronic kidney disease, stage 4 (severe) Status: Acute Assessment and Plan: Monitor lab, i/o Renal dose meds Avoid nephrotoxic drugs Subjective Date/time seen: 03/31/21 08:47 Interval history: Admitted 03/30 with chest pain. Verbal report of heme + stoold in ED (from community health nurse staff). Received 1 U PRBC in ED. 03/31: More sob. Right lower parasternal chest pain, moderate, worse with breathing. Increased sob. Fever overnight. Completing course of oral Levaquin 500mg. Review of Systems Review of Systems: Narrative: Generalized weakness. All systems reviewed & are unremarkable except as noted in HPI and below Exam Narrative: Exam Narrative: HEENT: EOMI, PERRL, sclerae nonicteric, pharyngeal mucosa pink and intact NECK: No JVD, adenopathy, or thyromegaly CHEST: Mildly tachypneic, coarse BS, scattered crackles, more noted on right. HEART: NL S1/S2, regular, no murmur ABDOMEN: BS+, soft, nontender, no mass, no bruits EXTREMITIES: No cyanosis, edema, or clubbing NEUROLOGIC: CN intact and symmetric to inspection. MUSCULOSKELETAL: Tone and strength symmetric. PSYCH: Alert. Oriented to person, place, and time. Objective Data Vital Signs Vital Signs: Vital Signs - 24 hr 03/30/21 15:39 03/30/21 17:31 03/30/21 17:46 Temperature 98.7 F Pulse Rate 109 H 107 H 106 H Respiratory Rate 20 32 H 22 H Blood Pressure 131/46 L 116/69 112/45 L Pulse Oximetry 99 95 96 03/30/21 18:01 03/30/21 18:16 03/30/21 18:18 Temperature Pulse Rate 101 H 100 98 Respiratory Rate 32 H 30 H Blood Pressure 112/47 L 109/52 L Pulse Oximetry 94 95 03/30/21 19:24 03/30/21 19:59 03/30/21 20:05 Temperature 101.9 F H 99.4 F Pulse Rate 102 H 102 H 101 H Respiratory Rate 32 H 16 20 Blood Pressure 115/54 L 118/55 L 132/56 L Pulse Oximetry 96 100 97 03/30/21 20:15 03/30/21 21:15 03/30/21 21:30 Temperature 98.1 F 99.5 F Pulse Rate 102 H 99 99 Respiratory Rate 20 18 28 H Blood Pressure 134/51 L 125/48 L 120/50 L Pulse Oximetry 100 99 99 03/30/21 21:36 03/30/21 23:17 03/30/21 23:20 Temperature 99.5 F 97.5 F L Pulse Rate 96 102 H 91 Respiratory Rate 28 H 16 Blood Pressure 120/50 L 122/45 L Pulse Oximetry 99 98 03/31/21 00:00 03/31/21 02:00 03/31/21 03:43 Temperature 98.1 F Pulse Rate 88 101 H 110 H Respiratory Rate 18 Blood Pressure 119/75 Pulse Oximetry 97 03/31/21 04:00 03/31/21 05:59 Temperature Pulse Rate 106 H 108 H Respiratory Rate Blood Pressure Pulse Oximetry Intake/Output
[2021-03-31 10:19] LABS: Hematocrit 23.2 % (37.0-47.0); Hemoglobin 7.8 g/dL (12.0-15.0); Lymphocytes Absolute Auto 0.07 K/mm3 (0.9-3.2); Lymphocytes Percent Auto 30.4 % (18.3-44.2); Mean Corpuscular HGB Conc 33.6 g/dl (32-36); Mean Corpuscular Hemoglobin 29.8 pg (26-34); Mean Corpuscular Volume 88.5 fl (80-100); Mean Platelet Volume 11.5 fl (7.4-10.4); Monocytes Percent Auto 4.3 % (2.6-8.5); Neutrophils Absolute Auto 0.2 K/mm3 (1.3-6.7); Neutrophils Percent Auto 65.3 % (45.5-73.1); Platelet Count Result 227 k/mm3 (150-375); Red Blood Count 2.62 M/mm3 (4.2-5.4); Red Cell Distribution Width 19.1 % (11.5-14.5)
[2021-03-31 10:28] LABS: Alanine Aminotransferase 31 U/L (4-35); Albumin Level 2.6 g/dL (3.5-5.1); Alkaline Phosphatase 41 U/L (38-126); Anion Gap 7 mmol/L (8-16); Aspartate Amino Transferase 138 U/L (14-36); Bilirubin,Total 1.3 mg/dL (0.2-1.3); Blood Urea Nitrogen 38 mg/dL (7-17); Calcium 8.3 mg/dL (8.4-10.2); Carbon Dioxide 22 mmol/L (22-30); Chloride 106 mmol/L (98-107); Estimated CRCL calculation 12 ml/min; Estimated Glomerular Filt Rate 19; Glucose 75 mg/dL (65-105); Potassium 3.7 mmol/L (3.4-5.0); Sodium 135 mmol/L (137-145)
[2021-03-31 10:46] LABS: Anisocytosis 1+ (NORMAL); Hypochromasia 1+ (NORMAL); Platelet Estimate Adequate (Adequate); White Blood Count 0.2 K/mm3 (4.5-10.0)
[2021-03-31 10:47] LABS: Burr Cells 1+ (NORMAL)
[2021-03-31] MEDS: FLUCONAZOLE 100 MG TABLET PO (10:55)
[2021-03-31] MEDS: ANASTROZOLE (*CHEMO) 1 MG TABLET PO (10:55)
[2021-03-31] MEDS: FERROUS SULFATE 324 MG TABLET 648 MG PO (10:55)
[2021-03-31] MEDS: LEVOTHYROXINE SODIUM 100 MCG TABLET PO (10:55)
[2021-03-31] MEDS: CHOLECALCIFEROL 1,000 UNITS TABLET 2000 UNITS PO (10:55)
[2021-03-31] MEDS: PRAVASTATIN SODIUM 20 MG TABLET 40 MG PO (10:55)
[2021-03-31] MEDS: ACYCLOVIR 400 MG TABLET PO ×2 (10:55→16:16)
[2021-03-31] MEDS: PANTOPRAZOLE 40 MG TABLET PO ×2 (10:56→16:16)
--- NOTE | 2021-03-31 11:00 | PC.NURSE ---
Patient unable to void. Bladder scan performed at 1052, with 420 ml of urine noted. Dr. Yang advised. No new orders at this time, will continue to monitor closely.
[2021-03-31] MEDS: LOSARTAN POTASSIUM 100 MG TABLET PO (11:20)
[2021-03-31] MEDS: ASCORBIC ACID 500 MG TABLET PO (11:21)
[2021-03-31] MEDS: CALCIUM CARBONATE (TUMS) 500 MG (200 MG ELEMENTAL) PO (11:21)
[2021-03-31] MEDS: ASPIRIN 81 MG CHEWABLE TABLET PO (11:22)
--- NOTE | 2021-03-31 12:58 | PM.CNCAR ---
Assessment and Plan Assessment and plan (1) Elevated troponin I level: Code(s): R77.8 - Other specified abnormalities of plasma proteins Status: Acute Assessment and Plan: Elevated troponins noted, flat curve, atypical chest pain which is pleuritic, consider myocarditis or pericarditis. No h/o DVT/PE, no LE edema. She does have a history of CAD but no acute ischemic changes by EKG. Doubt ACS or non-STEMI. Check Echo (2) Acute systolic CHF (congestive heart failure): Code(s): I50.21 - Acute systolic (congestive) heart failure Status: Acute Assessment and Plan: Received 1 unit of packed cells in the ER and this morning appears to be in CHF. I am hesitant to diurese as she looks septic, but on the other hand is i CHF w/ hypoxia. Will give furosemide 40 mg PO X 1 and see if that helps some w/ her pulm congestion. (3) Neutropenic fever: Code(s): D70.9 - Neutropenia, unspecified; R50.81 - Fever presenting with conditions classified elsewhere Status: Acute Assessment and Plan: Looks septic, BP not as robust as usual. On vancomycin and imipenem, cultures pending (4) CAD (coronary artery disease): Code(s): I25.10 - Atherosclerotic heart disease of [place] coronary artery without angina pectoris Status: Acute Assessment and Plan: Pt reports h/o CAD and CABG. (5) Chronic progressive renal failure, stage 4 (severe): Code(s): N18.4 - Chronic kidney disease, stage 4 (severe) Status: Acute Assessment and Plan: Stable chronic kidney disease History of Present Illness History of Present Illness Consult date/time: 03/31/21 12:58 Reason For Visit: NSTEMI,Anemia,Leukemia,Guaic Positive Narrative: Katrin Mckeon is an 81-year-old white female whom we were asked to see at the request of the hospitalist for advice and opinion regarding her elevated troponins in consultation. She has a history of myelodysplastic syndrome, on chemotherapy, as well as stage IV CKD. She apparently sees Dr. Ray for her CKD, history of CABG. The patient arrived to the emergency room on 03/30/2021 complaining of weakness for one day has suffered a fall versus a syncopal episode yesterday (no injury). She also complained of some pleuritic right lower parasternal chest discomfort. She was anemic and given 1 unit of packed red cells, and found to have troponins up to 3.8. She also has developed a fever. She has been short of breath today. Some abdominal pain. Difficulty urinating for a couple of days. Mild cough with production of a small amount of yellow phlegm. Currently requiring 5 L O2. Review of Systems Constitutional: Constitutional: Reports fatigue, Reports lethargy and Reports weakness Eyes: Eyes: Reports no additional eye complaints ENT: Reports Normal hearing present Cardiovascular: Cardiovascular: Reports chest pain, Denies pedal edema, Denies leg edema, Reports lightheadedness and Denies palpitations Respiratory: Respiratory: Reports cough and Reports dyspnea on exertion Gastrointestinal: Gastrointestinal: Reports abdominal pain, Denies hematochezia and Denies diarrhea Genitourinary: Genitourinary: Denies hematuria Musculoskeletal: Musculoskeletal: Reports no additional musculoskeletal complaints Integumentary/Breasts: Skin/Breast: Denies rash Neurologic: Reports system reviewed and no additional complaints, except as documented Psychiatric: Psychiatric: Reports no additional psychiatric complaints [facility] Past Medical History Medical History (Updated 03/31/21 @ 13:44 by Coby Mitchell MD) Anemia Arthritis Breast cancer, right CAD (coronary artery disease) CKD (chronic kidney disease) IV Full dentures GERD (gastroesophageal reflux disease) Heart attack History of angina History
[2021-03-31] MEDS: FILGRASTIM-SNDZ 480 MCG/0.8 ML SYRINGE SUB-Q (13:23)
[2021-03-31] MEDS: ONDANSETRON INJ 4 MG/2 ML VIAL IV PUSH (13:25)
--- NOTE | 2021-03-31 13:38 | WPDGICN ---
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 and also recent chemotherapy, no need of GI work up at this point unless obvious GIB besides she does not want to have any intervention (2) Acute on chronic anemia: Code(s): D64.9 - Anemia, unspecified Status: Acute Assessment and Plan: multifactorial with known history of MDS medical support, blood transfusion as needed poor prognosis given recent presentation also with elevated troponin, renal failure and also neutropenic fever (3) MDS/MPN (myelodysplastic/myeloproliferative neoplasms): Code(s): D46.9 - Myelodysplastic syndrome, unspecified Status: Acute (4) Acute respiratory failure with hypoxemia: Code(s): J96.01 - Acute respiratory failure with hypoxia Status: Acute (5) Chronic progressive renal failure, stage 4 (severe): Code(s): N18.4 - Chronic kidney disease, stage 4 (severe) Status: Acute Assessment and Plan: monitor, medical support (6) Elevated troponin I level: Code(s): R77.8 - Other specified abnormalities of plasma proteins Status: Acute Assessment and Plan: evaluated by cardiology (7) CAD (coronary artery disease): Code(s): I25.10 - Atherosclerotic heart disease of nikolski coronary artery without angina pectoris Status: Acute (8) Neutropenic fever: Code(s): D70.9 - Neutropenia, unspecified; R50.81 - Fever presenting with conditions classified elsewhere Status: Acute Assessment and Plan: broad spectrum antibiotics by primary team, cultures pending GI Consult Note Consult date/time: 03/31/21 13:38 Reason for consult: acute on chronic blood loss anemia HPI: Katrin Mckeon is a 81 year old female with known history of MDS on chemotherapy and recurrent anemia admitted after progressive fatigue, poor appetite and just doing poorly. She had received blood transfusions in the past. Blood work showed again anemia with hb 6.5, given blood transfusion but also overnight she had fever and neutropenia (started on antibiotics) and on isolation. ER checked occult blood in stool that was positive therefore I was called to see her. Patient is feeling weak, she does not want to have any sort of GI evaluation (she says that had colonoscopy in the past), she is just too tired and not feeling like talking much. Also had renal failure with creat 2, elevated troponin 3, cardiology evaluation. Review of Systems Constitutional: Constitutional: Reports fatigue, Reports lethargy and Reports weakness Comments: fever Eyes: Eyes: Reports no additional eye complaints ENT: Reports Normal hearing present Cardiovascular: Cardiovascular: Reports no additional cardiovascular complaints Respiratory: Respiratory: Reports dyspnea on exertion Gastrointestinal: Gastrointestinal: Denies nausea Comments: lack appetite Genitourinary: Genitourinary: Reports no additional female genitourinary complaints Musculoskeletal: Musculoskeletal: Reports no additional musculoskeletal complaints Integumentary/Breasts: Skin/Breast: Reports system reviewed and no additional complaints, except as docu Neurologic: Reports system reviewed and no additional complaints, except as documented Psychiatric: Psychiatric: Reports no additional psychiatric complaints [facility] Past Medical History Medical History (Updated 04/01/21 @ 10:00 by Koko Arvizu MD) Acute on chronic anemia Anemia Arthritis Breast cancer, right CAD (coronary artery disease) CKD (chronic kidney disease) IV Full dentures GERD (gastroesophageal reflux disease) Heart attack History of angina History of blood transfusion HLD (hyperlipidemia) HTN (hypertension) Hypothyroid Nose
[2021-03-31] MEDS: FUROSEMIDE 40 MG TABLET PO (15:50)
[2021-03-31 16:48] LABS: Add Urine Microscopic? YES; Appearance Urine Cloudy (Clear); Bacteria Urine Trace /hpf; Bilirubin Urine Negative (Negative); Blood Urine 2+ (Negative); Color Urine Amber (Yellow); Glucose Urine UA Negative (Negative); Ketones Urine Negative (Negative); Leukocyte Esterase Ur Negative LEU/UL (Negative); Nitrate Urine Negative (Negative); Protein Urine 2+ mg/dL (Negative); Specific Grav Ur 1.018 (1.001-1.035); WBC Urine 0-3 /hpf
[2021-03-31] MEDS: LORazepam INJ (*CRX) 2 MG/ML VIAL 0.5 MG IV PUSH (20:23)
--- NOTE | 2021-03-31 20:25 | PC.NURSE ---
Bladder scan obtained at 1440, 475 ml of urine noted in bladder. Dr. Yang advised, and order obtained for straight cath prn, q shift.
[2021-03-31 20:27] LABS: Hematocrit 22.1 % (37.0-47.0); Hemoglobin 7.4 g/dL (12.0-15.0); Mean Corpuscular HGB Conc 33.5 g/dl (32-36); Mean Corpuscular Hemoglobin 29.7 pg (26-34); Mean Corpuscular Volume 88.8 fl (80-100); Mean Platelet Volume 11.6 fl (7.4-10.4); Platelet Count Result 213 k/mm3 (150-375); Red Blood Count 2.49 M/mm3 (4.2-5.4); Red Cell Distribution Width 19.2 % (11.5-14.5)
[2021-03-31 20:30] LABS: White Blood Count 0.6 K/mm3 (4.5-10.0)
[2021-03-31 20:36] LABS: Lactic Acid Reflex 1.4 mmol/L (0.7-2.1)
[2021-03-31 20:37] LABS: Alanine Aminotransferase 33 U/L (4-35); Albumin Level 2.3 g/dL (3.5-5.1); Alkaline Phosphatase 34 U/L (38-126); Anion Gap 9 mmol/L (8-16); Aspartate Amino Transferase 146 U/L (14-36); Bilirubin,Total 1.5 mg/dL (0.2-1.3); Blood Urea Nitrogen 41 mg/dL (7-17); Calcium 7.9 mg/dL (8.4-10.2); Carbon Dioxide 19 mmol/L (22-30); Chloride 105 mmol/L (98-107); Estimated CRCL calculation 11 ml/min; Estimated Glomerular Filt Rate 17; Glucose 63 mg/dL (65-105); Potassium 3.5 mmol/L (3.4-5.0); Sodium 133 mmol/L (137-145)
[2021-03-31] MEDS: HYDROCORTISONE SODIUM SUCCINATE 100 MG/2 ML VIAL IV PUSH (20:58)
[2021-03-31 21:17] LABS: Alveolar/Arterial O2 Gradient 579.3 mmHg; Base Excess ABG -4.1 mEq/l (+/-2.0); Carboxyhemoglobin 0.3 % THb (0-2.0); Device NON-REBREATHER MASK; Fractional Inspired Oxygen 95 %; HCO3 ABG 18.5 mEq/l (22.0-26.0); Methemoglobin ABG 0.4 %THb (0-1.5); Oxyhemoglobin 94.3 % THb (90.0-100.0); PCO2 ABG 24.8 mmHg (35.0-45.0); PO2 ABG 72.9 mmHg (80.0-100.0); PO2 FiO2 Ratio Arterial Blood 0.77 %; Site Drawn LEFT BRACHIAL; Total Hemoglobin 8.2 g/dL (12.0-18.0)
--- NOTE | 2021-03-31 21:27 | PM.EVENT ---
Event Note Event Note Event Note: Rapid response was called to the room upon arrival patient with respiratory rate in the 40s very distressed patient was placed on 10 L by nasal cannula with a non-rebreather mask. Patient had stated that she did not want to be on a ventilator did not want to be intubated in view of these we decided to discuss code status and discuss with daughter who came to visit after conversation patient has decided to be comfort care only does not want to be resuscitated we have made the patient comfort care measures only.
[2021-03-31] MEDS: SCOPOLAMINE 1.5 MG PATCH TRANSDERM (22:30)
--- NOTE | 2021-03-31 23:09 | PC.NURSE ---
At 2255 pt transferred from IMU per bed. Daughter and son at bedside with patient. Will monitor closely. Bed exit alarm activated and call light in reach.
--- NOTE | 2021-03-31 23:12 | PC.NURSE ---
This patient, Katrin Mckeon, was transferred to [ [id number]] on 03/31/21 at 2256 for comfort care measures. Personal belongings sent with patient. Report given to [Bella Maier ]. Appropriate documentation sent with patient.
[2021-04-01] MEDS: MORPHINE SULFATE (*CRX) 2 MG/ML INJ IV PUSH ×4 (00:09→06:31)
[2021-04-01] MEDS: LORazepam (*CRX) 2 MG/ML 30 ML ORAL CONCENTRATE 1 MG SUBLINGUAL (02:01)
--- NOTE | 2021-04-01 12:03 | PM.DS ---
DS: Admitting Diagnosis Admitting Diagnosis Admitting Diagnosis: Anemia with fatigue and anorexia DS: Discharge Diagnosis Discharge Diagnosis (1) Sepsis: Qualifiers: Sepsis type: sepsis due to unspecified organism Sepsis acute organ dysfunction status: with acute organ dysfunction Severe sepsis acute organ dysfunction type: acute respiratory failure Acute respiratory failure type: with hypoxia Severe sepsis shock status: with septic shock Qualified Code(s): A41.9 - Sepsis, unspecified organism; R65.21 - Severe sepsis with septic shock; J96.01 - Acute respiratory failure with hypoxia Code(s): A41.9 - Sepsis, unspecified organism Status: Acute (2) Neutropenic fever: Code(s): D70.9 - Neutropenia, unspecified; R50.81 - Fever presenting with conditions classified elsewhere Status: Acute (3) MDS/MPN (myelodysplastic/myeloproliferative neoplasms): Code(s): D46.9 - Myelodysplastic syndrome, unspecified Status: Acute (4) Anemia of chronic renal failure, stage 4 (severe): Code(s): N18.4 - Chronic kidney disease, stage 4 (severe); D63.1 - Anemia in chronic kidney disease Status: Acute (5) Heme positive stool: Code(s): R19.5 - Other fecal abnormalities Status: Acute (6) Elevated troponin I level: Code(s): R77.8 - Other specified abnormalities of plasma proteins Status: Acute (7) Pleuritic chest pain: Code(s): R07.81 - Pleurodynia Status: Acute (8) Acute respiratory failure with hypoxemia: Code(s): J96.01 - Acute respiratory failure with hypoxia Status: Acute (9) Chronic progressive renal failure, stage 4 (severe): Code(s): N18.4 - Chronic kidney disease, stage 4 (severe) Status: Acute DS: Summary Hospital Course Reason for hospitalization: Fatigue decreased appetite and anemia Hospital Course: Admitted March 30 with fatigue decreased appetite and anemia. Received blood transfusion the emergency department. Admitted to intermediate care. Became febrile overnight with neutropenia from her chronic MDS. More short of breath. Oxygen vancomycin and Primaxin were begun. Chest x-ray showed diffuse infiltrates. Low-dose furosemide 40 mg was given after consultation with Cardiology. Blood pressures were soft. Patient seem to stabilized to the day but worsened acutely through the night with shortness of breath. In the straight line press setter hours of April 01 her family opted for comfort care only. All medications but comfort medications were discontinued. She was transferred to medical floor. She was still having some episodes of grimacing and shortness of breath. She was receiving scopolamine and p.r.n. morphine 2 mg IV push. After consultation with her son at bedside hospice consultation was initiated. Time Spent with Patient Time attestation: Total time spent providing and/or coordinating discharge services: Exam Narrative: Exam Narrative: HEENT: pharyngeal mucosa pink and intact NECK: No JVD CHEST: Mildly tachypneic, coarse BS, scattered crackles HEART: NL S1/S2, regular, tachycardic, no murmur ABDOMEN: BS hypoactive, soft, nontender, no mass, no bruits EXTREMITIES: No cyanosis, edema, or clubbing NEUROLOGIC: CN intact and symmetric to inspection. MUSCULOSKELETAL: Tone symmetric. PSYCH: Sleeping. Responds to noxious stimuli, but not verbal. Intermittently grimacing. DS: Data Data Completed and Pending Labs on day of discharge: Labs from last 24 hours 03/31/21 03/31/21 03/31/21 20:52 20:19 20:19 WBC RBC Hgb Hct MCV MCH MCHC RDW Plt Count MPV Puncture Site Left brachial ABG pH 7.490 H ABG pCO2 24.8 L ABG pO2 72.9 L ABG PO2/FiO2 Ratio 0.77 ABG HCO3 18.5 L ABG O2 Saturation 96.0 ABG O2 Content 11.0 L ABG Base Excess -4.1 A-a Gradient 579.3 Oxyhemoglobin 94.3 Carboxyhemoglobin 0.3 Methemoglobin 0.4 Reduced Hemoglobin 5.0 Total
[2021-04-01 14:00] VITALS: BP 94/45; PULSE 99; RESP 18; TEMP 36.7; O2SAT 100
== END 2021-04-01 15:43 | disposition hospice, inpatient (51) | DRG 871 ==
LOC: ANHED 17:23 → ANHIMU 03-31 00:06 → ANH2MED 04-01 12:10 → ANHIMU 04-04 16:08
PROVIDERS: Emergency Medicine; Admitting Provider Internal Medicine; Emergency Provider General Practice; PCP Family Medicine Adolescent Medicine; Visit Provider Internal Medicine
DX: A41.9 Sepsis, unspecified organism (principal); J96.01 Acute respiratory failure with hypoxia; I50.21 Acute systolic (congestive) heart failure; R65.21 Severe sepsis with septic shock; N18.4 Chronic kidney disease, stage 4 (severe); I13.0 Hypertensive heart and chronic kidney disease with heart failure and stage 1 through stage 4 chronic kidney disease, or unspecified chronic kidney disease; D46.9 Myelodysplastic syndrome, unspecified; D63.1 Anemia in chronic kidney disease; I25.10 Atherosclerotic heart disease of native coronary artery without angina pectoris; E78.5 Hyperlipidemia, unspecified; D70.9 Neutropenia, unspecified; R50.81 Fever presenting with conditions classified elsewhere
CPT/HCPCS: 36415; 36430; 36600; 71045; 80048; 80053; 81001; 82375; 82805; 83050; 83605; 84484; 85025; 85027; 85610; 85730; 86850; 86900; 86901; 86923; 87040; 87077; 87103; 87186; 93005; 96374; 96375; 99291; A9270; C9113; J0131; J0743; J1642; J1720; J2060; J2270; J2405; J3370; J7030; J7050; P9016; Q5101

== ENCOUNTER 2021-04-01 15:20 | HOS | payer OTHER, MEDICARE, SELFPAY ==
[2021-04-01] MEDS: MORPHINE SULFATE INJ (*CRX) 50 MG in SODIUM CHLORIDE 0.9% IV 95 ML IV CONT (16:57)
[2021-04-01 20:00] VITALS: BP 88/43; PULSE 58; RESP 22; TEMP 39.2; O2SAT 77
[2021-04-01] MEDS: LORazepam INJ (*CRX) 2 MG/ML VIAL 1 MG IV PUSH (20:04)
--- NOTE | 2021-04-01 21:47 | PC.NURSE ---
Patient has temperature of 102.5. I offered Tylenol suppository family refused due to comfort issues. Will monitor.
[2021-04-02] MEDS: LORazepam INJ (*CRX) 2 MG/ML VIAL 1 MG IV PUSH ×2 (00:18→04:18)
--- NOTE | 2021-04-02 06:10 | PC.NURSE ---
Fay informed of patient .
--- NOTE | 2021-04-02 06:11 | PC.NURSE ---
Patient found with no respirations, no heart beat, and unresponsive. Family at bedside.
--- NOTE | 2021-04-02 06:39 | PC.NURSE ---
[facility] returned call and states they will inform Mechelle Yang of patient .
--- NOTE | 2021-04-02 09:00 | PC.NURSE ---
Family gone. Postmortem care provided. Patient's body to morgue via morgue cart. home notified.
--- NOTE | 2021-04-02 10:24 | PM.DDS ---
Discharge Sum: Prov Provider Primary care physician: Dane Pringle MD Admitting provider: Dayron Yang MD Discharge Sum: Diag Contributing Factors (1) Sepsis: (2) Acute respiratory failure with hypoxemia: (3) Chronic progressive renal failure, stage 4 (severe): (4) Acute systolic CHF (congestive heart failure): (5) CAD (coronary artery disease): (6) Neutropenic fever: (7) MDS/MPN (myelodysplastic/myeloproliferative neoplasms): Discharge Sum: Summary Date and Time Date of admission: 04/01/21 15:44 Summary Details: Patient presented with increasing weakness. Found to have neutropenia with fever. Known MDS. Despite vancomycin and Primaxin along with furosemide for congestive heart failure she continued to decline. Family wished to proceed with comfort care only. She was admitted to inpatient hospice service. Medications were titrated to comfort. Dyspnea and restlessness were well controlled. She peacefully. Additional Data Attending physician: Dayron Yang MD
--- NOTE | 2021-04-02 10:32 | PM.IMHP ---
H&P: HPI History of Present Illness Date/Time: 04/02/21 10:32 Chief Complaint: Uncontrolled dyspnea and restlessness Narrative: 81-year-old female with known MDS and congestive heart failure and chronic kidney disease was admitted to acute care with increasing fatigue and decreased appetite. Her chest x-ray was unremarkable at admission. She became febrile overnight. Blood cultures were drawn and chest x-ray showed bilateral increasing infiltrates. She remained neutropenic from admission. Vancomycin and Primaxin were begun. Low-dose furosemide was given due to soft blood pressures. She stabilized to the day but deteriorated overnight. Became more dyspneic. Family opted for comfort care only and stopped all medications except morphine and scopolamine. She remained comfortable through the night and was transition to inpatient hospice for ongoing comfort care. Review of Systems Review of Systems: ROS unobtainable: Yes unobtainable due to medical condition PMFSH Past Medical History Medical History Acute on chronic anemia Anemia Arthritis Breast cancer, right CAD (coronary artery disease) CKD (chronic kidney disease) IV Full dentures GERD (gastroesophageal reflux disease) Heart attack History of angina History of blood transfusion HLD (hyperlipidemia) HTN (hypertension) Hypothyroid Nose fracture Pneumonia Wears glasses Surgical History Surgical History H/O angioplasty H/O bilateral cataract extraction H/O cardiac catheterization H/O colonoscopy H/O heart artery stent History of appendectomy History of cholecystectomy History of hysterectomy Hx of CABG x3 S/P AAA repair Family History Family History Mother Acute myocardial infarction Sibling Acute myocardial infarction Other Hypertension Social History Social History Social History: Lives at home with her and daughter Smoking packs per day: 2 Smoking cigarettes per day: 40.0 Years smoked: 40 Smoking pack-years: 80.00 Smoking status: Former smoker Tobacco type: cigarettes Second hand tobacco smoke exposure: Yes Smoking end date: 03/17/03 Alcohol intake: never Substance use: never Substance use type: does not use Gender identity (if verbalized by the patient): Female Spiritual care concerns: No Meds Home Medications and Allergies Home Medications Medication Instructions Recorded Confirmed Type anastrozole 1 mg PO DAILY 09/03/19 04/01/21 History ascorbic acid (vitamin C) 500 mg PO DAILY 09/03/19 04/01/21 History aspirin 81 mg PO DAILY 09/03/19 04/01/21 History calcium carbonate 500 mg PO DAILY 09/03/19 04/01/21 History fenofibrate 54 mg PO HS 09/03/19 04/01/21 History ferrous sulfate 650 mg PO QAM 09/03/19 04/01/21 History hydrocodone-acetaminophen 1 tablet PO Q6H PRN 09/03/19 04/01/21 History isosorbide mononitrate 60 mg PO HS 09/03/19 04/01/21 History levothyroxine 100 mcg PO DAILY 09/03/19 04/01/21 History mirtazapine 15 mg PO HS 09/03/19 04/01/21 History pantoprazole 40 mg PO BID 09/03/19 04/01/21 History pravastatin 40 mg PO DAILY 09/03/19 04/01/21 History losartan 100 mg PO DAILY 01/16/21 04/01/21 History Levaquin 500 mg PO DAILY 03/21/21 04/01/21 History acyclovir 400 mg PO BID 03/21/21 04/01/21 History fluconazole 100 mg PO DAILY 03/21/21 04/01/21 History diltiazem HCl [DILT-XR] 240 mg PO DAILY 03/30/21 04/01/21 History lidocaine-prilocaine 1 applic TOPICAL DIRECTED PRN 03/30/21 04/01/21 History prochlorperazine maleate 10 mg PO Q6H PRN 03/30/21 04/01/21 History cholecalciferol (vitamin D3) 50 mcg PO DAILY 03/31/21 04/01/21 History Allergies Allergy/AdvReac Type Severity Reaction Status Date / Time Penicillins Allergy Intermediate RASH Verified 03/26/21 11:09 Vital Signs V
== END 2021-04-02 06:06 | disposition expired | DRG 951 ==
PROVIDERS: Admitting Provider Internal Medicine; PCP Family Medicine Adolescent Medicine; Visit Provider Internal Medicine
DX: Z51.5 Encounter for palliative care (principal); A41.9 Sepsis, unspecified organism; R65.21 Severe sepsis with septic shock; J96.01 Acute respiratory failure with hypoxia; I50.21 Acute systolic (congestive) heart failure; I13.0 Hypertensive heart and chronic kidney disease with heart failure and stage 1 through stage 4 chronic kidney disease, or unspecified chronic kidney disease; N18.4 Chronic kidney disease, stage 4 (severe); D46.9 Myelodysplastic syndrome, unspecified; D70.9 Neutropenia, unspecified; R50.81 Fever presenting with conditions classified elsewhere; I25.10 Atherosclerotic heart disease of native coronary artery without angina pectoris; E03.9 Hypothyroidism, unspecified; K21.9 Gastro-esophageal reflux disease without esophagitis; I25.2 Old myocardial infarction; Z85.3 Personal history of malignant neoplasm of breast; Z87.891 Personal history of nicotine dependence
CPT/HCPCS: A9270; J2060; J2270